=== PATIENT | female | born 1950 | race Two or more races ===

== ENCOUNTER 2017-11-05 11:18 | Outpatient (CLI) | payer OTHER ==
[~2017-11-05 11:18] MED LIST: COUMADIN5 MG; METFORMIN HCL500 M1; ORPH100T PO; TOPROL XL200 MG; TRAMADOL HCL-AP1 TAB PO
== END 2017-11-05 12:28 | disposition home or self-care (01) ==
LOC: MAMO-SONO 11:18
DX: Z12.31 Encounter for screening mammogram for malignant neoplasm of breast (principal); Z87.898 Personal history of other specified conditions; N62 Hypertrophy of breast

== ENCOUNTER 2018-03-10 08:05 | Outpatient (CLI) | payer OTHER | END 2018-03-10 08:09 | disposition home or self-care (01) | LOC: SONOGRAMA 08:05 → MAMO-SONO 08:15 | DX: R10.84 Generalized abdominal pain (principal) ==

== ENCOUNTER 2020-01-19 13:56 | Outpatient (CLI) | payer OTHER | END 2020-01-19 14:05 | disposition home or self-care (01) | LOC: NUCLEAR 13:56 | PROVIDERS: ATTEND Internal Medicine Cardiovascular Disease | DX: M81.0 Age-related osteoporosis without current pathological fracture (principal); E55.9 Vitamin D deficiency, unspecified ==

== ENCOUNTER 2020-01-21 10:19 | Outpatient (CLI) | payer OTHER | END 2020-01-21 10:23 | disposition home or self-care (01) | LOC: MAMO-SONO 10:19 | PROVIDERS: ATTEND Internal Medicine Cardiovascular Disease | DX: Z12.31 Encounter for screening mammogram for malignant neoplasm of breast (principal); N64.59 Other signs and symptoms in breast ==

== ENCOUNTER 2021-05-23 12:53 | Outpatient (CLI) | payer OTHER | END 2021-05-23 13:00 | disposition home or self-care (01) | LOC: RAD 12:53 | PROVIDERS: ATTEND Internal Medicine Cardiovascular Disease | DX: M17.9 Osteoarthritis of knee, unspecified (principal) ==

== ENCOUNTER 2021-05-24 12:36 | Outpatient (CLI) | payer OTHER | END 2021-05-24 13:00 | disposition home or self-care (01) | LOC: SONOGRAMA 12:36 | PROVIDERS: ATTEND Internal Medicine Cardiovascular Disease | DX: M12.9 Arthropathy, unspecified (principal) ==